=== PATIENT | male | born 1975 | race Caucasian/White ===

== ENCOUNTER 2018-02-26 04:09 | Emergency (ER) | payer BC ==
[~2018-02-26] VITALS: Ht 185.4 cm; Wt 85.0 kg
[2018-02-26 04:18] VITALS: BP 128/83; PULSE 99; RESP 18; TEMP 98.2; O2SAT 98
[2018-02-26] MEDS ORDERED: PERC5TAB12 PO (05:07)
[2018-02-26] MEDS ORDERED: AUGM875T3 PO (05:07)
[2018-02-26] MEDS ORDERED: OFLO0.3D9 RIGHT EAR (05:07)
--- NOTE | 2018-02-26 05:12 | PD ---
HPI Chief Complaint: ENT Complaint Time Seen by Provider: 04:55 Travel History International Travel<30 days: No Contact w/Intl Traveler<30days: No Traveled to known affect area: No History of Present Illness HPI 42-year-old white male presents emergency department complains of right ear pain. Patient states that he has had problems all his life with his ears. In the past week he has had drainage coming from the right ear which was significant initially. He states that the drainage was initially a yellowish green and serous discharge. States that the drainage in the last few days has decreased but he is now developed severe pain in his right ear. He has had some runny nose, and congestion. Slight cough. He denies any fever chills. No shortness of breath or wheezing. No sore throat. No alleviating or exacerbating activity. PFSH Past Medical History Narrative Medical Chronic otitis media, hearing loss Diminished Hearing: No Medical other: Yes (viral menegitis, chronic ear infections) Neurologic: Yes (aracnoiditis) Tetanus Vaccination: Unknown Influenza Vaccination: Yes Past Surgical History Oral Surgery: Yes Tympanostomy Tube: Yes (x16 and 2 tympanoplastys) Social History Alcohol Use: No Tobacco Use: Yes Substance Use: No Allergies-Medications (Allergen,Severity, Reaction): Coded Allergies: No Known Allergies (Unverified , 02/26/18) Reported Meds & Prescriptions Reported Meds & Active Scripts Active Percocet (Oxycodone-Acetaminophen) 5-325 mg Tab 1 Tab PO Q6H PRN Ofloxacin Otic Drops 0.3 % Drops 5 Drop RIGHT EAR BID Augmentin (Amoxicillin-Clavulanate) 875-125 Mg Tab 1 Tab PO BID Review of Systems General / Constitutional: No: Fever Eyes: No: Visual changes HENT: Positive: Congestion, Ear Discharge, Earache, No: Headaches, Dental Difficulties Cardiovascular: No: Chest Pain or Discomfort Respiratory: Positive: Cough, No: Shortness of Breath Gastrointestinal: No: Abdominal Pain Genitourinary: No: Dysuria Musculoskeletal: No: Pain Skin: No Rash Neurologic: No: Weakness Psychiatric: No: Depression Endocrine: No: Polydipsia Hematologic/Lymphatic: No: Easy Bruising Physical Exam Narrative GENERAL: Well-developed, well-nourished in no acute distress. Nontoxic appearing. HEAD: Normocephalic, atraumatic. EYES: Pupils equal round and reactive. Extraocular motions intact. No scleral icterus. No injection or drainage. ENT: The left TM is clear without erythema. The left external auditory canal is clear. The right external auditory canal is somewhat edematous. Patient has pain in the canal as well as in the pinna and tragus. The TM is poorly visualized but no gross erythema is noted. Unable to assess if there is a perforation.. Nose: clear . Posterior pharynx is pink and moist. No tonsillar edema or exudate. Uvula midline. Airway patent. NECK: Trachea midline.Supple, nontender, moves head freely. No central bony tenderness or spasm. CARDIOVASCULAR: Regular rate and rhythm without murmurs, gallops, or rubs. RESPIRATORY: Clear to auscultation. Breath sounds equal bilaterally. No wheezes , rales, or rhonchi. GASTROINTESTINAL: Abdomen soft, non-tender, nondistended. No hepato-splenomegaly , or palpable masses. No guarding. EXTREMITIES: No clubbing, cyanosis, or edema. No joint tenderness, effusion, or edema noted. BACK: Nontender without deformity or crepitance. No flank tenderness. Data Data Last Documented VS Vital Signs Date Time Temp Pulse Resp B/P (MAP) Pulse Ox O2 Delivery O2 Flow Rate FiO2 02/26/18 04:18 98.2 99 18 128/83 (98) 98 Orders Orders Amoxicil-Clavulanate (Augmentin) (02/26/18 05:15) Oxycodone-Acetamin 5-325 Mg (Percocet (02/26/18 05:15) Ed Discharge Order (02/26/18 05:04) [facility] Medical Decision Making Medical Screen Exam Complete: Yes Emergency Medical Condition: Yes Medical Record Reviewed: Yes Differential Diagnosis Differential diagnosis: Otitis media, otitis externa, eustachian tube dysfunction, mastoiditis Narrative Course Patient's given amoxicillin 875 mg p.o. and 1 Percocet 5 mg p.o. This is right otalgia, right otitis media Diagnosis Primary Impression: Otalgia, right ear Additional Impression: Right otitis media Patient Instructions: General Instructions, Narcotic given in the ED Additional Instructions: Rest. Increase fluids. Chew gum. Sudafed. Augmentin, ofloxacin otic drops, and Percocet for severe pain. Follow-up with your doctor or ENT as soon as possible. Med/Other Pt SpecificInfo: Prescription(s) given Scripts Oxycodone-Acetaminophen (Percocet) 5-325 mg Tab 1 TAB PO Q6H Y for PAIN, #10 TAB 0 Refills Prov: Renee Hairston DO 02/26/18 Ofloxacin Otic Drops (Ofloxacin Otic Drops) 0.3 % Drops 5 DROP RIGHT EAR BID for Infection, #1 BOTTLE 0 Refills Prov: Renee Hairston DO 02/26/18 Amoxicillin-Clavulanate (Augmentin) 875-125 Mg Tab 1 TAB PO BID for Infection, #20 TAB 0 Refills Prov: Renee Hairston DO 02/26/18 Disposition: 01 DISCHARGE HOME Condition: Stable Christofer Bernard Feb 26, 2018 05:12
[2018-02-26] MEDS ORDERED: oxyCODONE/ACETAMINOPHEN 5 MG/325 MG TAB PO ONE (05:15)
[2018-02-26] MEDS ORDERED: AMOXICILLIN/CLAVULANATE K 875 MG TAB PO ONE (05:15)
== END 2018-02-26 05:18 | disposition home or self-care (01) ==
LOC: NEPD 04:09
DX: H66.91 Otitis media, unspecified, right ear (principal); Z72.0 Tobacco use
CPT/HCPCS: 99283